=== PATIENT | male | born 1995 | race Two or more races ===

== ENCOUNTER 2021-11-13 18:32 | Emergency (ER) | payer MEDICAID, OTHER ==
[~2021-11-13] VITALS: Ht 172.7 cm; Wt 74.8 kg
[2021-11-13 18:34] VITALS: BP 125/87
== END 2021-11-13 21:00 | disposition left against medical advice (07) ==
LOC: ER 18:34
DX: Z76.0 Encounter for issue of repeat prescription (principal); Z53.21 Procedure and treatment not carried out due to patient leaving prior to being seen by health care provider

== ENCOUNTER 2021-11-14 12:08 | Emergency (ER) | payer MEDICAID ==
[~2021-11-14] VITALS: Ht 172.7 cm; Wt 72.6 kg
[2021-11-14 13:28] VITALS: BP 134/87
[2021-11-14] MEDS ORDERED: ALPRAZolam 0.5 MG TAB PO ONE (14:45)
== END 2021-11-14 15:05 | disposition home or self-care (01) ==
LOC: ER 12:08
DX: F41.9 Anxiety disorder, unspecified (principal); Z76.0 Encounter for issue of repeat prescription

== ENCOUNTER 2022-03-15 19:33 | Emergency (ER) | payer MEDICAID ==
[~2022-03-15] VITALS: Ht 172.7 cm; Wt 72.2 kg
[2022-03-15] MEDS ORDERED: cloNIDine HCL 0.1 MG TAB PO ONE (21:00)
[2022-03-15] MEDS ORDERED: SODIUM CHLORIDE 0.9% 1,000 ML IV ONE (22:00)
[2022-03-15 22:38] LABS: Albumin 4.2 g/dL (3.4-5.0); BUN/Creatinine Ratio 13.2; Basophils # (auto) 0 10 ^3/uL (0-0.2); Basophils % (auto) 0.6 % (0.0-2.0); Calcium 9.7 mg/dL (8.5-10.1); Eosinophils # (auto) 0 10 ^3/uL (0-0.8); Eosinophils % (auto) 0.7 % (0.0-7.0); Hematocrit 51.4 % (41.0-53.0); Hemoglobin 16.3 g/dL (13.5-17.5); Lymphocytes # (auto) 1.8 10 ^3/uL (0.4-5.4); Lymphocytes % (auto) 23.8 % (10.0-50.0); Mean Corpuscular Hemoglobin 29.5 pg (28.0-32.0); Mean Corpuscular Hgb Conc. 31.7 g/dL (32.0-36.0); Mean Corpuscular Volume 93.3 fL (80.0-100.0); Monocytes # (auto) 0.7 10 ^3/uL (0-1.3); Monocytes % (auto) 9.1 % (0.0-12.0); Neutrophils # (auto) 4.9 10 ^3/uL (1.6-8.6); Neutrophils % (auto) 65.8 % (37.0-80.0); Nucleated Red Blood Cells % 0.1 %; Potassium 4.5 mmol/L (3.5-5.1); Red Blood Cells 5.51 10^6/uL (4.5-5.90); Red Cell Distribution Width 14.1 % (11.8-14.3); White Blood Cell 7.5 10^3/uL (4.4-10.8)
[2022-03-15 22:40] LABS: Bilirubin, Total 0.5 mg/dL (0.2-1.0); Total Protein 7.2 g/dL (6.4-8.2)
[2022-03-16] MEDS ORDERED: diazePAM 5 MG TAB PO ONE (05:15)
[2022-03-16 06:45] LABS: Alcohol, Urine < 3.0 mg/dL (0-10); Amphetamine Screen, Urine NEGATIVE (NEGATIVE); Barbiturate Scree,Urine NEGATIVE (NEGATIVE); Benzodiazephine Screen, Urine NEGATIVE (NEGATIVE); Cannabinoid Screen, Urine NEGATIVE (NEGATIVE); Cocaine Screen, Urine NEGATIVE (NEGATIVE); Opiate Scree,Urine NEGATIVE (NEGATIVE); Phencyclidine Screen, Urine NEGATIVE (NEGATIVE)
[2022-03-16 14:26] VITALS: BP 130/85
== END 2022-03-16 14:26 | disposition home or self-care (01) ==
LOC: EDUNIT# 19:33 → ER 19:33 → EDBD 19:33 → ER 03-16 14:26
DX: R41.82 Altered mental status, unspecified (principal); E78.5 Hyperlipidemia, unspecified; F19.10 Other psychoactive substance abuse, uncomplicated
CPT/HCPCS: 36415; 80053; 80307; 80320; 85025; 96360; 96361; 99283; J7030